=== PATIENT | male | born 1975 ===

== ENCOUNTER 2024-05-27 14:08 | Outpatient (CLI) | payer OTHER, SELFPAY ==
--- NOTE | 2024-05-27 14:38 | US_ITS ---
WS: [id number] TESTICULAR ULTRASOUND HISTORY: SCROTAL MASS COMPARISON: None available. TECHNIQUE: Real-time and color Doppler imaging or utilized to perform a testicular ultrasound. Right testicle: 4.3 cm x 3.3 cm x 3.1 cm. Normal size and echogenicity. No mass or torsion. Vascularity is noted within the periphery and towards the central portion of the testicle. Normal wav eform. No significant hydrocele. Mild scrotal wall thickening. Right epididymis: Normal epididymis with no increased vascularity. Left testicle: 4.8 cm x 3.4 cm x 3.0 cm. Normal size and echogenicity. No mass or torsion. Normal color Doppler is present throughout. Systolic and diastolic velocities are both present. Small hydrocele. Mild scrotal wall thickening. Left epididymis: Small spermatocele versus loculated hydrocele adjacent to the LEFT epididymis. Cyst measures 1.9 x 1.1 x 3.4 cm. US/US scrotum [id number] IMPRESSION: 1. No testicular mass or torsion. 2. Small LEFT hydrocele. 3. Small LEFT spermatocele versus loculated hydrocele, 1.9 x 1.1 x 3.4 cm. 4. Mild scrotal wall thickening.
== END 2024-05-27 14:09 | disposition home or self-care (01) ==
LOC: RAD 14:09
PROVIDERS: PCP Urology; Visit Provider Nurse Practitioner Adult Health
DX: N50.9 Disorder of male genital organs, unspecified (principal)
CPT/HCPCS: 76870

== ENCOUNTER 2024-06-02 13:18 | Outpatient (CLI) | payer OTHER, SELFPAY ==
--- NOTE | 2024-06-02 13:23 | CT_ITS ---
WS: [id number] CT ABDOMEN PELVIS TECHNIQUE: Noncontrast CT of the abdomen and pelvis with coronal and sagittal reformatted images. CLINICAL INFORMATION: STAGHORN CALCULUS COMPARISON: CT 2019 DLP: [id number] scans at [facility] use at least one of these dose optimization techniques: automated e xposure control; mA and/or kV adjustment per patient size (includes targeted exams where dose is matc hed to clinical indication); or iterative reconstruction. FINDINGS: RIGHT staghorn calculus measuring 3.9 x 1.5 cm extending into the renal pelvis. No hydronephrosis RIG HT kidney. RIGHT renal peripelvic cyst measuring 4.1 cm appears separate from the renal pelvis. No hydronephrosis in the LEFT kidney. Adrenal glands are normal. IVC filter. Lung bases are well aerated. Noncontrast pancreas appears normal. Normal caliber abdomina l aorta. Tiny esophageal hiatal hernia. Normal noncontrast gallbladder. No abdominal or para-aortic l ymphadenopathy. Normal appendix in the RIGHT lower quadrant. Tiny fat-containing umbilical hernia. Fat-containing LEFT inguinal hernia. Moderate spondylitic roche es lumbar spine. Pedicle screw fixation lower thoracic extending into the upper lumbar spine. Apparen t fracture of the LEFT T10 pedicle screw CT/CT abdomen pelvis wo con [id number] IMPRESSION: 1. RIGHT staghorn calculus described above extending into the renal pelvis new from 2019. No hydronephrosis. 2. RIGHT renal peripelvic cyst measuring 4.1 cm. 3. No acute obstructing renal or ureteral calculi 4. IVC filter. 5. Small esophageal hiatal hernia. 6. Prior pedicle screw fixation lower thoracic and upper lumbar spine with chr onic fracture of the mid LEFT T10 pedicle screw unchanged since 2010 7. Fat-containing LEFT inguinal hernia
== END 2024-06-02 13:19 | disposition home or self-care (01) ==
LOC: RAD 13:18
PROVIDERS: Visit Provider Nurse Practitioner Family
DX: N20.0 Calculus of kidney (principal); N28.1 Cyst of kidney, acquired; K40.90 Unilateral inguinal hernia, without obstruction or gangrene, not specified as recurrent; M47.896 Other spondylosis, lumbar region; M43.24 Fusion of spine, thoracic region; Z95.828 Presence of other vascular implants and grafts; T84.296D Other mechanical complication of internal fixation device of vertebrae, subsequent encounter; Y99.9 Unspecified external cause status
CPT/HCPCS: 74176